=== PATIENT | female | born 1985 | race Caucasian/White ===

== ENCOUNTER → 2016-08-28 | Outpatient (CLI) | payer BC | LOC: FIMAGING 14:31 | PROVIDERS: ATTEND Obstetrics & Gynecology | DX: Z34.81 Encounter for supervision of other normal pregnancy, first trimester (principal); Z3A.12 12 weeks gestation of pregnancy ==

== ENCOUNTER → 2016-10-24 | Outpatient (CLI) | payer BC | LOC: FIMAGING 13:23 | PROVIDERS: ATTEND Obstetrics & Gynecology | DX: Z36 Encounter for antenatal screening of mother (principal) ==

== ENCOUNTER → 2017-02-20 | Outpatient (CLI) | payer BC | LOC: FIMAGING 08:56 | PROVIDERS: ATTEND Obstetrics & Gynecology | DX: Z34.82 Encounter for supervision of other normal pregnancy, second trimester (principal); Z3A.37 37 weeks gestation of pregnancy ==

== ENCOUNTER → 2017-05-10 | Outpatient (CLI) | payer BC | LOC: FIMAGING 10:33 | PROVIDERS: ATTEND Obstetrics & Gynecology | DX: D27.0 Benign neoplasm of right ovary (principal) ==